=== PATIENT | female | born 1960 | race Caucasian/White ===

== ENCOUNTER 2017-04-11 11:11 | Inpatient (IN) | payer MEDICARE, MEDICAID ==
[~2017-04-11] VITALS: Ht 160 cm; Wt 145.4 kg
[~2017-04-11 11:11] MED LIST: ALBUTEROL S2.5 MG/.5 IN; CIPROFLOXACN500 MG PO; HYDROCHLOROT25 MG PO; K-TABS10 MEQ PO; LASIX20 MG PO; LORTAB 7.57.5 MG PO; MECLIZINE25 MG PO; METFORMIN500 MG PO; METHOCARBAM500 MG PO; NO; PREMARIN1.25 MG PO; PROVENTIL HFA IN; PROVENTIL HFA INH; PROZAC20 M1 PO; VENTOLIN HFA IN; WELLBUTRIN SR150 MG PO
[2017-04-11 12:51] LABS: HEMATOCRIT 45.2 % (37.0-47.0); IMMATURE GRANULOCYTES 0.5 % (0.0-1.0); MEAN CELL VOLUME 89.3 fL CALC (80.0-100.0); MEAN CORPUSCULAR HGB 27.7 pG CALC (26.0-32.0); NEUT# 7.07 thou/uL (2.00-7.15); RED BLOOD COUNT 5.06 mill/uL (4.20-5.60); RED CELL DISTRI WIDTH 14.1 % (11.5-15.5)
[2017-04-11 13:03] LABS: ALBUMIN 4.1 g/dL (3.2-5.0); ALKALINE PHOSPHATASE 115 u/l (38-126); ANION GAP 16 (6-22 (CALC)); BILIRUBIN, TOTAL 0.5 mg/dL (0.0-1.4); BUN 14 mg/dL (7-17); BUN/CREATININE RATIO 25 (12-20 (CALC)); CALCIUM 8.9 mg/dL (8.4-10.2); CARBON DIOXIDE 35 mmol/l (22-30); CHLORIDE 96 mmol/l (95-108); CREATININE 0.6 mg/dL (0.5-1.0); GFR > 60 ML/MIN (>=60 (CALC)); GFR FOR AFR.AMER. > 60 ML/MIN (>=60 (CALC)); GLUCOSE 133 mg/dL (65-105); POTASSIUM 4.2 mmol/l (3.5-5.1); SGOT/AST 30 u/l (14-36); SGPT/ALT 46 u/l (9-52); SODIUM 143 mmol/l (137-146); TOTAL PROTEIN 7.2 g/dL (6.3-8.2)
[2017-04-11 13:15] LABS: MYOGLOBIN 29 ng/mL (0 - 62)
[2017-04-11 13:39] LABS: URINE BILIRUBIN - DIPSTICK NEGATIVE (NEGATIVE); URINE BLOOD DIPSTICK NEGATIVE (NEGATIVE); URINE CLARITY CLEAR; URINE COLOR YELLOW; URINE GLUCOSE - DIPSTICK NEGATIVE (NEGATIVE); URINE KETONE NEGATIVE (NEGATIVE); URINE LEUK ESTERASE NEGATIVE (NEGATIVE); URINE NITRITE - DIPSTICK NEGATIVE (Negative); URINE PH 6.5 (4.5-8.0); URINE PROTEIN - DIPSTICK NEGATIVE (NEG-TRACE); URINE SPECIFIC GRAVITY 1.015; URINE UROBILINOGEN - DIPSTICK 0.2 E.U./dL (0.2)
[2017-04-11 15:00] VITALS: BP 152/66
[2017-04-11 19:55] VITALS: BP 152/81
[2017-04-12] VITALS (8 sets, daily range): BP systolic 128–156; BP diastolic 67–78
[2017-04-12 05:45] LABS: HEMATOCRIT 47.3 % (37.0-47.0); HEMOGLOBIN 14.6 g/dl (12.0-16.0); IMMATURE GRANULOCYTES 1.4 % (0.0-1.0); MEAN CELL VOLUME 89.6 fL CALC (80.0-100.0); MEAN CORPUSCULAR HGB 27.7 pG CALC (26.0-32.0); MEAN CORPUSCULAR HGB CONC 30.9 g/L CALC (32.0-36.0); NEUT# 8.44 thou/uL (2.00-7.15); RED BLOOD COUNT 5.28 mill/uL (4.20-5.60); RED CELL DISTRI WIDTH 13.6 % (11.5-15.5)
[2017-04-12 06:01] LABS: ANION GAP 17 (6-22 (CALC)); BUN 14 mg/dL (7-17); BUN/CREATININE RATIO 25 (12-20 (CALC)); CALCIUM 9.5 mg/dL (8.4-10.2); CALCULATED LDLCHOLESTEROL 86 mg/dL (62-129 (CALC)); CARBON DIOXIDE 37 mmol/l (22-30); CHLORIDE 94 mmol/l (95-108); CHOLESTEROL HDL RATIO 3.1 (<4.4 (CALC)); CREATININE 0.6 mg/dL (0.5-1.0); GFR > 60 ML/MIN (>=60 (CALC)); GFR FOR AFR.AMER. > 60 ML/MIN (>=60 (CALC)); GLUCOSE 164 mg/dL (65-105); HDL CHOLESTEROL 52 mg/dL (>=40); POTASSIUM 4.9 mmol/l (3.5-5.1); SODIUM 143 mmol/l (137-146); TOTAL CHOLESTEROL 158 mg/dl (0-199); TOTAL TRIGLYCERIDES 99 mg/dl (30-149); VLDL CHOLESTROL 20 mg/dl (2-49 (CALC))
[2017-04-13 03:40] VITALS: BP 154/71
[2017-04-13 04:56] LABS: HEMATOCRIT 47.3 % (37.0-47.0); HEMOGLOBIN 14.4 g/dl (12.0-16.0); IMMATURE GRANULOCYTES 0.5 % (0.0-1.0); MEAN CELL VOLUME 89.6 fL CALC (80.0-100.0); MEAN CORPUSCULAR HGB 27.3 pG CALC (26.0-32.0); MEAN CORPUSCULAR HGB CONC 30.4 g/L CALC (32.0-36.0); NEUT# 10.18 thou/uL (2.00-7.15); RED BLOOD COUNT 5.28 mill/uL (4.20-5.60); RED CELL DISTRI WIDTH 13.5 % (11.5-15.5)
[2017-04-13 05:20] LABS: BUN 22 mg/dL (7-17); BUN/CREATININE RATIO 36 (12-20 (CALC)); CHLORIDE 91 mmol/l (95-108); CREATININE 0.6 mg/dL (0.5-1.0); GFR > 60 ML/MIN (>=60 (CALC)); GFR FOR AFR.AMER. > 60 ML/MIN (>=60 (CALC)); GLUCOSE 151 mg/dL (65-105); SODIUM 140 mmol/l (137-146)
[2017-04-13 05:27] LABS: ANION GAP 13 (6-22 (CALC))
[2017-04-13 05:30] LABS: CARBON DIOXIDE 41 mmol/l (22-30)
[2017-04-13 07:20] VITALS: BP 137/77
[2017-04-13 11:09] VITALS: BP 144/75
[2017-04-13 14:55] VITALS: BP 148/81
[2017-04-13 19:45] VITALS: BP 148/73
[2017-04-14 00:20] VITALS: BP 126/60
[2017-04-14 04:12] VITALS: BP 151/50
[2017-04-14 08:00] VITALS: BP 132/58
[2017-04-14 11:15] VITALS: BP 154/82
[2017-04-14] MEDS ORDERED: LEVAQUIN750 MG PO (14:02)
[2017-04-14] MEDS ORDERED: IPRATROPIU0.5 MG/3 M NEB (14:02)
[2017-04-14] MEDS ORDERED: PREDNISONE10 MG PO (14:02)
[2017-04-14] MEDS ORDERED: LASIX20 MG PO (14:02)
[2017-04-14] MEDS ORDERED: NEBULIZER COMPRESSOR (14:02)
== END 2017-04-14 14:49 | disposition home or self-care (01) | DRG 189 ==
LOC: ENPENDDIS → ED 11:11 → ED-I 12:43 → ED 14:23 → MS2 14:24
PROVIDERS: Emergency Medicine; ADMIT Internal Medicine; ATTEND Internal Medicine
DX: J96.01 Acute respiratory failure with hypoxia (principal); J44.0 Chronic obstructive pulmonary disease with (acute) lower respiratory infection; J44.1 Chronic obstructive pulmonary disease with (acute) exacerbation; Z68.43 Body mass index [BMI] 50.0-59.9, adult; J96.02 Acute respiratory failure with hypercapnia; J20.9 Acute bronchitis, unspecified; E11.9 Type 2 diabetes mellitus without complications; G47.33 Obstructive sleep apnea (adult) (pediatric); R60.0 Localized edema; F17.210 Nicotine dependence, cigarettes, uncomplicated; E66.01 Morbid (severe) obesity due to excess calories; Z79.84 Long term (current) use of oral hypoglycemic drugs
CPT/HCPCS: J1650

== ENCOUNTER 2017-06-03 10:52 | Emergency (ER) | payer MEDICARE, MEDICAID ==
[~2017-06-03] VITALS: Ht 160 cm; Wt 136.0 kg
[~2017-06-03 10:52] MED LIST changes: +IPRATROPIU0.5 MG/3 M NEB; +LEVAQUIN750 MG PO; +NEBULIZER COMPRESSOR; +PREDNISONE10 MG PO
[2017-06-03] MEDS ORDERED: SPIRIVA IN (11:11)
[2017-06-03] MEDS ORDERED: BREO ELLIPTA 101 INH (11:12)
[2017-06-03] MEDS ORDERED: EFFEXOR XR75 MG PO (11:13)
[2017-06-03 11:55] LABS: HEMATOCRIT 40.6 % (37.0-47.0); HEMOGLOBIN 12.5 g/dl (12.0-16.0); IMMATURE GRANULOCYTES 0.5 % (0.0-1.0); MEAN CELL VOLUME 87.9 fL CALC (80.0-100.0); MEAN CORPUSCULAR HGB 27.1 pG CALC (26.0-32.0); MEAN CORPUSCULAR HGB CONC 30.8 g/L CALC (32.0-36.0); NEUT# 8.09 thou/uL (2.00-7.15); RED BLOOD COUNT 4.62 mill/uL (4.20-5.60); RED CELL DISTRI WIDTH 14.6 % (11.5-15.5)
[2017-06-03 13:00] LABS: ALBUMIN 3.7 g/dL (3.2-5.0); ALKALINE PHOSPHATASE 113 u/l (38-126); ANION GAP 12 (6-22 (CALC)); BILIRUBIN, TOTAL 0.4 mg/dL (0.0-1.4); BUN 15 mg/dL (7-17); BUN/CREATININE RATIO 28 (12-20 (CALC)); CALCIUM 8.6 mg/dL (8.4-10.2); CARBON DIOXIDE 35 mmol/l (22-30); CHLORIDE 97 mmol/l (95-108); CREATININE 0.5 mg/dL (0.5-1.0); GFR > 60 ML/MIN (>=60 (CALC)); GFR FOR AFR.AMER. > 60 ML/MIN (>=60 (CALC)); GLUCOSE 145 mg/dL (65-105); POTASSIUM 4.5 mmol/l (3.5-5.1); SGOT/AST 23 u/l (14-36); SGPT/ALT 48 u/l (9-52); SODIUM 140 mmol/l (137-146); TOTAL PROTEIN 6.6 g/dL (6.3-8.2)
[2017-06-03] MEDS ORDERED: CEPHALEXIN500 MG PO (13:20)
[2017-06-03] MEDS ORDERED: IPRATROPIU0.5 MG/3 M IN (13:20)
[2017-06-03] MEDS ORDERED: MEDDOSEPAK PO (13:20)
[2017-06-03 13:26] VITALS: BP 168/70
== END 2017-06-03 13:44 | disposition home or self-care (01) ==
LOC: ED 10:52
PROVIDERS: Emergency Medicine
DX: J44.1 Chronic obstructive pulmonary disease with (acute) exacerbation (principal); F17.210 Nicotine dependence, cigarettes, uncomplicated; R06.02 Shortness of breath; R22.43 Localized swelling, mass and lump, lower limb, bilateral; R50.9 Fever, unspecified; R00.0 Tachycardia, unspecified

== ENCOUNTER 2017-07-03 12:28 | Inpatient (IN) | payer MEDICARE, MEDICAID ==
[~2017-07-03] VITALS: Ht 160 cm; Wt 145.0 kg
[~2017-07-03 12:28] MED LIST changes: +BREO ELLIPTA 101 INH IN; +CEPHALEXIN500 MG PO; +EFFEXOR XR75 MG PO; +IPRATROPIU0.5 MG/3 M IN; +MEDDOSEPAK PO; +SPIRIVA IN
--- NOTE | 2017-07-03 13:08 | NUR ---
PATIENT TO ROOM VIA WHEELCHAIR AND PHYSICIAN NOTIFIED OF PATIENT STATUS
[2017-07-03 14:06] LABS: URINE BILIRUBIN - DIPSTICK NEGATIVE (NEGATIVE); URINE BLOOD DIPSTICK NEGATIVE (NEGATIVE); URINE CLARITY CLEAR; URINE COLOR YELLOW; URINE GLUCOSE - DIPSTICK NEGATIVE (NEGATIVE); URINE KETONE NEGATIVE (NEGATIVE); URINE LEUK ESTERASE NEGATIVE (NEGATIVE); URINE NITRITE - DIPSTICK NEGATIVE (Negative); URINE PROTEIN - DIPSTICK NEGATIVE (NEG-TRACE)
--- NOTE | 2017-07-03 14:39 | NUR ---
PT PROVIDES URINE SPECIMEN, IV ESTABLISHED WITHOUT BLOOD COLLECTION. LAB AWARE AND WILL DRAW. PT SEEN MID 90s O-2 SATS WITH 2 LPM NC.
[2017-07-03 15:20] LABS: HEMATOCRIT 39.7 % (37.0-47.0); HEMOGLOBIN 12.2 g/dl (12.0-16.0); IMMATURE GRANULOCYTES 0.5 % (0.0-1.0); MEAN CELL VOLUME 86.3 fL CALC (80.0-100.0); MEAN CORPUSCULAR HGB 26.5 pG CALC (26.0-32.0); MEAN CORPUSCULAR HGB CONC 30.7 g/L CALC (32.0-36.0); NEUT# 7.6 thou/uL (2.00-7.15); RED BLOOD COUNT 4.6 mill/uL (4.20-5.60)
[2017-07-03 15:36] LABS: ALBUMIN 3.9 g/dL (3.2-5.0); ALKALINE PHOSPHATASE 105 u/l (38-126); ANION GAP 12 (6-22 (CALC)); BILIRUBIN, TOTAL 0.6 mg/dL (0.0-1.4); BUN 12 mg/dL (7-17); BUN/CREATININE RATIO 21 (12-20 (CALC)); CALCIUM 8.9 mg/dL (8.4-10.2); CARBON DIOXIDE 36 mmol/l (22-30); CHLORIDE 96 mmol/l (95-108); CREATININE 0.6 mg/dL (0.5-1.0); GFR > 60 ML/MIN (>=60 (CALC)); GFR FOR AFR.AMER. > 60 ML/MIN (>=60 (CALC)); GLUCOSE 92 mg/dL (65-105); POTASSIUM 4.5 mmol/l (3.5-5.1); SGOT/AST 29 u/l (14-36); SGPT/ALT 50 u/l (9-52); SODIUM 139 mmol/l (137-146); TOTAL PROTEIN 7.3 g/dL (6.3-8.2)
[2017-07-03 15:48] LABS: MYOGLOBIN 28 ng/mL (0 - 62)
[2017-07-03] MEDS ORDERED: SINGULAIR10 MG PO (16:15)
[2017-07-03] MEDS ORDERED: XALATAN 0.005%2.5 ML OU (16:18)
[2017-07-03] MEDS ORDERED: TOPIRAMATE100 MG PO (16:19)
--- NOTE | 2017-07-03 16:30 | NUR ---
PT AWARE OF PENDING ADMISSION, RESTS IN THE STRETCHER IN NO ACUTE DISTRESS.
--- NOTE | 2017-07-03 16:30 | NUR ---
SBAR PRINTED TO FLOOR
--- NOTE | 2017-07-03 17:55 | NUR ---
PT TO ROOM VIA WC ACCOMPANIED BY STAFF; PT A/O X3; AMBULATORY TO BED WITH STAND BY ASSIST; PT ORIENTED TO ROOM AND CALL SYSTEM; DENIES PAIN; O2 2L VIA NC; CALL [place] WITHIN REACH; WILL CONTINUE TO MONITOR.
--- NOTE | 2017-07-03 17:59 | NUR ---
PT TAKEN TO ROOM 283 WITHOUT INCIDENT, REPORT WAS TO FELIPE YOUNG.
[2017-07-03 18:00] VITALS: BP 156/80
[2017-07-03 18:29] LABS: BARBITURATES NEGATIVE (NEGATIVE); COCAINE NEGATIVE (NEGATIVE); METHADONE NEGATIVE (NEGATIVE); OXCYCODONE NEGATIVE (NEGATIVE); TETRAHYDROCANNABIONOL NEGATIVE (NEGATIVE); TRICYLIC ANTIDEPRESSANTS NEGATIVE (NEGATIVE)
--- NOTE | 2017-07-03 21:00 | NUR ---
PT A/O X3, OOB TO BATHROOM VOIDING CLEAR YELLOW URINE, BECOMES SOB WITH ACTIVITY, O2 @2L VIA NC IN PLACE. DENIES PAIN OR DISCOMFORT. ORIENTED TO BED CONTROLS AND CALL LIGHT FOR ASSISTANCE.
[2017-07-04] VITALS: BP 148/72
--- NOTE | 2017-07-04 01:00 | NUR ---
RESTING ON RIGHT SIDE WITH EYES CLOSED, RESPIRATIONS EVEN AND UNLABORED.
[2017-07-04 04:39] VITALS: BP 132/64
--- NOTE | 2017-07-04 06:00 | NUR ---
SOLUMEDROL GIVEN IV PER DR'S ORDERS, TOLERATED WELL. RESPIRATIONS EVEN AND UNLABORED. OFFERS NO CONCERNS.
[2017-07-04 08:08] VITALS: BP 185/72
--- NOTE | 2017-07-04 08:08 | NUR ---
ASSESMENT IS COMPLETED NO DISTRESS NOTED. IV SITE IS FREE FROM REDNESS OR EDEMA. CONTINUE TO OSBERVE AND MONITOR,.
--- NOTE | 2017-07-04 12:15 | NUR ---
PT HAS BEEN RESTING IN BED WITH NO DISTRESS NOTED. IV SITE IS FREE FROM REDNESS OR EDMEA. CONTINUE TO OBSERVE AND MONITOR.
[2017-07-04 15:01] VITALS: BP 139/73
--- NOTE | 2017-07-04 16:20 | NUR ---
PT CONTINUES TO REST WITH NO DISTRESS NOTED. IV SITE IS FREE FROM REDNESS OR EDEMA.
--- NOTE | 2017-07-04 19:00 | NUR ---
RECEIVED SHIFT REPORT FROM SOFIA MELVIN. PATIENT SITTING UP IN BED WITH FAMILY AT BEDSIDE. NO APPARENT ACUTE DISTRESS OR DISCOMFORT NOTED. NO VOICED COMPLAINTS AT THIS TIME. WILL CONTINUE TO MONITOR.
[2017-07-04 19:12] VITALS: BP 141/83
--- NOTE | 2017-07-05 | NUR ---
PATIENT LAYING IN BED WITH EYES CLOSED AND APPEARS TO BE ASLEEP. RESPIRATION EVEN AND UNLABORED. NO APPARENT ACUTE DISTRESS NOTED. WILL CONTINUE TO MONITOR.
--- NOTE | 2017-07-05 04:00 | NUR ---
NO APPARENT ACUTE CHANGES NOTED IN PATIENT'S CONDITION.
[2017-07-05 04:10] VITALS: BP 159/67
[2017-07-05 06:02] LABS: HEMATOCRIT 41.3 % (37.0-47.0); HEMOGLOBIN 12.4 g/dl (12.0-16.0); IMMATURE GRANULOCYTES 0.8 % (0.0-1.0); MEAN CELL VOLUME 88.2 fL CALC (80.0-100.0); MEAN CORPUSCULAR HGB 26.5 pG CALC (26.0-32.0); NEUT# 10.2 thou/uL (2.00-7.15); RED BLOOD COUNT 4.68 mill/uL (4.20-5.60); RED CELL DISTRI WIDTH 14.3 % (11.5-15.5)
[2017-07-05 06:22] LABS: BUN 18 mg/dL (7-17); BUN/CREATININE RATIO 30 (12-20 (CALC)); CALCIUM 9.1 mg/dL (8.4-10.2); CALCULATED LDLCHOLESTEROL 99 mg/dL (62-129 (CALC)); CHLORIDE 91 mmol/l (95-108); CHOLESTEROL HDL RATIO 3.7 (<4.4 (CALC)); CREATININE 0.6 mg/dL (0.5-1.0); GFR > 60 ML/MIN (>=60 (CALC)); GFR FOR AFR.AMER. > 60 ML/MIN (>=60 (CALC)); GLUCOSE 139 mg/dL (65-105); HDL CHOLESTEROL 44 mg/dL (>=40); MAGNESIUM 2.1 mg/dL (1.6-2.3); SODIUM 140 mmol/l (137-146); TOTAL CHOLESTEROL 163 mg/dl (0-199); TOTAL TRIGLYCERIDES 95 mg/dl (30-149); VLDL CHOLESTROL 19 mg/dl (2-49 (CALC))
[2017-07-05 06:23] LABS: POTASSIUM 5.2 mmol/l (3.5-5.1)
--- NOTE | 2017-07-05 07:00 | NUR ---
SHIFT CHANGE REPORT FROM COLEEN, PT SLEEPING IN HIGH FOWLERS POSITION, SNORING, DID NOT AWAKEN TO LIGHT VERBAL STIMULATION BUT SHOWED NO VISIBLE SIGH DISTRESS, CALL [place] IN REACH AND BED LOCKED IN LOWEST POSITION.
[2017-07-05 07:01] LABS: ANION GAP 13 (6-22 (CALC)); CARBON DIOXIDE 41 mmol/l (22-30)
--- NOTE | 2017-07-05 09:00 | NUR ---
AWAKE AND ALERT, C/O DISCOMFORT AT IV SITE, INFUSION STOPPED AND CATHETER REMOVED, NO REDNESS/SWELLING OBSERVED, NEW SITE PLACED.
[2017-07-05 09:37] VITALS: BP 120/69
--- NOTE | 2017-07-05 12:00 | NUR ---
SITTING UP AT SIDE OF BED, ATE MEAL, C/O FEELING VERY SLEEPY AND INQUIRED WHETHER OR NOT HER MEDS COULD BE THE CAUSE, INFORMATION GIVEN ON SIDE EFFECTS OF MEDS. ALL NEEDS ADDRESSED, CALL [place] IN REACH.
[2017-07-05 15:37] VITALS: BP 134/71
--- NOTE | 2017-07-05 16:13 | NUR ---
RELAXING IN BED AT THIS IMTE WATCHING TV, ALL NEEDS ADDRESSED, CALL [place] IN REACH.
--- NOTE | 2017-07-05 19:00 | NUR ---
RECEIVED SHIFT REPORT FROM PATRICK. HANNAH. PATIENT LAYING IN BED AND APPEARS NOT TO BE IN ANY APPARENT ACUTE DESTRESS. DENIES PAIN. WILL CONTINUE TO MONITOR.
[2017-07-05 19:28] VITALS: BP 139/67
--- NOTE | 2017-07-05 23:00 | NUR ---
PATIENT RESTING QUIETLY AT THIS TIME. NO APPARENT ACUTE DISTRESS NOTED.
--- NOTE | 2017-07-06 04:00 | NUR ---
NO APPARENT ACUTE CHANGES NOTED IN PATIENT'S CONDITION.
[2017-07-06 05:51] VITALS: BP 139/76
[2017-07-06 06:21] LABS: HEMOGLOBIN 12.8 g/dl (12.0-16.0); IMMATURE GRANULOCYTES 0.5 % (0.0-1.0); MEAN CELL VOLUME 87.5 fL CALC (80.0-100.0); MEAN CORPUSCULAR HGB 26.7 pG CALC (26.0-32.0); MEAN CORPUSCULAR HGB CONC 30.5 g/L CALC (32.0-36.0); NEUT# 8.94 thou/uL (2.00-7.15); RED BLOOD COUNT 4.8 mill/uL (4.20-5.60); RED CELL DISTRI WIDTH 14.3 % (11.5-15.5)
[2017-07-06 06:39] LABS: BUN 22 mg/dL (7-17); BUN/CREATININE RATIO 35 (12-20 (CALC)); CALCIUM 9.2 mg/dL (8.4-10.2); CHLORIDE 90 mmol/l (95-108); CREATININE 0.6 mg/dL (0.5-1.0); GFR > 60 ML/MIN (>=60 (CALC)); GFR FOR AFR.AMER. > 60 ML/MIN (>=60 (CALC)); GLUCOSE 122 mg/dL (65-105); POTASSIUM 4.8 mmol/l (3.5-5.1); SODIUM 139 mmol/l (137-146)
[2017-07-06 06:46] LABS: ANION GAP 12 (6-22 (CALC))
[2017-07-06 06:49] LABS: CARBON DIOXIDE 42 mmol/l (22-30)
--- NOTE | 2017-07-06 07:00 | NUR ---
SHIFT CHANGE REPORT FROM CAMILLE, JEB AWAKE AND ALERT SITTING UP IN BED, O2 @ 2L VIA NC INPLACE, BREATHING SHALLOW BUT EVEN AND NON-LABORED, ALL NEEDS MET, CALL [place] IN REACH.
[2017-07-06 08:09] VITALS: BP 103/56
[2017-07-06] MEDS ORDERED: PREDNISONE10 MG PO (12:27)
[2017-07-06] MEDS ORDERED: DOXYCYC MONO100 M1 PO (12:27)
[2017-07-06] MEDS ORDERED: PHENTERMINE37.5 M1 PO (12:29)
--- NOTE | 2017-07-06 14:50 | NUR ---
Discharge instructions given. Patient verbalizes understanding of same. Discharged in stable condition via Wheelchair to Home with family. All belongings sent with pt.
== END 2017-07-06 15:08 | disposition home or self-care (01) | DRG 189 ==
LOC: ED 12:28 → ED-I 15:56 → ED 16:24 → MS2 16:25
PROVIDERS: Emergency Medicine; Nurse Practitioner Family; ADMIT Internal Medicine; ATTEND Internal Medicine
PROC: 3E0234Z Introduction of Serum, Toxoid and Vaccine into Muscle, Percutaneous Approach (ICD-10-PCS; principal; 2017-07-04)
DX: J96.22 Acute and chronic respiratory failure with hypercapnia (principal); J44.1 Chronic obstructive pulmonary disease with (acute) exacerbation; Z99.81 Dependence on supplemental oxygen; Z68.43 Body mass index [BMI] 50.0-59.9, adult; J96.21 Acute and chronic respiratory failure with hypoxia; E11.9 Type 2 diabetes mellitus without complications; E66.01 Morbid (severe) obesity due to excess calories; H40.9 Unspecified glaucoma; R60.0 Localized edema; Z87.891 Personal history of nicotine dependence; Z23 Encounter for immunization; Z79.84 Long term (current) use of oral hypoglycemic drugs
CPT/HCPCS: G0378

== ENCOUNTER 2018-01-17 12:59 | Inpatient (IN) | payer MEDICARE, MEDICAID ==
[~2018-01-17] VITALS: Ht 160 cm; Wt 139.0 kg
[~2018-01-17 12:59] MED LIST changes: +DOXYCYC MONO100 M1 PO; +PHENTERMINE37.5 M1 PO; +SINGULAIR10 MG PO; +TOPIRAMATE100 MG PO; +XALATAN 0.005%2.5 ML OU
--- NOTE | 2018-01-17 13:10 | NUR ---
WHEELCHAIR TO ER ROOM 14, TO BED
[2018-01-17 13:56] LABS: HEMATOCRIT 40.2 % (37.0-47.0); HEMOGLOBIN 12.5 g/dl (12.0-16.0); IMMATURE GRANULOCYTES 0.8 % (0.0-1.0); MEAN CELL VOLUME 89.3 fL CALC (80.0-100.0); MEAN CORPUSCULAR HGB 27.8 pG CALC (26.0-32.0); MEAN CORPUSCULAR HGB CONC 31.1 g/L CALC (32.0-36.0); NEUT# 12.22 thou/uL (2.00-7.15); RED BLOOD COUNT 4.5 mill/uL (4.20-5.60); RED CELL DISTRI WIDTH 13.6 % (11.5-15.5)
--- NOTE | 2018-01-17 14:05 | NUR ---
PT REPORTS 11 LB WEIGHT GAIN IN 1 WEEK.
[2018-01-17 14:47] LABS: URINE BILIRUBIN - DIPSTICK NEGATIVE (NEGATIVE); URINE BLOOD DIPSTICK NEGATIVE (NEGATIVE); URINE COLOR YELLOW; URINE GLUCOSE - DIPSTICK NEGATIVE (NEGATIVE); URINE KETONE NEGATIVE (NEGATIVE); URINE LEUK ESTERASE NEGATIVE (NEGATIVE); URINE NITRITE - DIPSTICK NEGATIVE (Negative); URINE PH 5.5 (4.5-8.0); URINE PROTEIN - DIPSTICK NEGATIVE (NEG-TRACE); URINE UROBILINOGEN - DIPSTICK 0.2 E.U./dL (0.2)
[2018-01-17 14:59] LABS: ANION GAP 17 (6-22 (CALC)); BUN 16 mg/dL (7-17); BUN/CREATININE RATIO 25 (12-20 (CALC)); CARBON DIOXIDE 39 mmol/l (22-30); CHLORIDE 90 mmol/l (95-108); CREATININE 0.7 mg/dL (0.5-1.0); GFR > 60 ML/MIN (>=60 (CALC)); GFR FOR AFR.AMER. > 60 ML/MIN (>=60 (CALC)); POTASSIUM 4.1 mmol/l (3.5-5.1); SODIUM 142 mmol/l (137-146)
[2018-01-17 15:03] LABS: INTERNATIONAL NORMALIZED RATIO 0.9 RATIO (0.7-1.3); PROTHROMBIN TIME 10.1 SECONDS (9.0-12.5)
[2018-01-17 15:36] LABS: URINE CLARITY CLEAR
--- NOTE | 2018-01-17 15:37 | NUR ---
PT UPDATED ON FINDINGS, HAS REMAINED ON THE BSC PER LASIX EFFECT.
[2018-01-17] MEDS ORDERED: BUMETANIDE1 MG PO (16:37)
[2018-01-17] MEDS ORDERED: VICTOZA18 MG/3 ML SC (16:40)
[2018-01-17] MEDS ORDERED: PROVENTIL HFA IN (16:44)
[2018-01-17] MEDS ORDERED: PREDNISONE10 MG PO (16:45)
--- NOTE | 2018-01-17 17:00 | NUR ---
PT TAKEN T O ROOM 269, REPORT WAS TO MELIDA.
--- NOTE | 2018-01-17 17:20 | NUR ---
PT CAME VIA STRETCHER BY HANNAH MAHAJAN. STAND BY ASSIST TO SCALE AND THEN BY PT BED. ORIENTED TO CALL LIGHT AND SAFETY PRECAUTIONS REINFORCED. CALL LIGHT IN REACH.
[2018-01-17 17:38] VITALS: BP 180/83
--- NOTE | 2018-01-17 17:44 | NUR ---
ASSSESSMENT DONE AND TELE IN PLACE. #20 LW THAT APPEARS HEALHTY. O2 AT 2L/MIN VIA NC. PT DENIES PAIN AT THIS TIME. CALL LIGHT IN REACH.
--- NOTE | 2018-01-17 17:45 | NUR ---
BSC EMPTIED OF 2500 ML CLEAR YELLOW URINE.
[2018-01-17 17:50] VITALS: BP 168/80
[2018-01-17 19:00] VITALS: BP 175/79
--- NOTE | 2018-01-17 19:30 | NUR ---
BEDSIDE REPORT RECEIVED FROM HANNAH BEAVERS. PT SITTING UP IN BED WITH VISITOR AT BEDSIDE. DENIES PAIN CURRENTLY. RESPIRATIONS EVEN AND UNLABORED ON ROOM AIR. SHE REQUESTS A FAN AT THIS TIME STATING THAT SHE IS HOT; ROOM NOTED TO BE VERY COOL; FAN PLACED IN ROOM. PLAN OF CARE DISCUSSED. PT ENCOURAGED TO VERBALIZE CONCERNS. STATES UNDERSTANDING. SAFETY MEASURES IN PLACE. CALL LIGHT WITHIN REACH.
--- NOTE | 2018-01-18 | NUR ---
PT ASLEEP AT THIS TIME WITH NO SIGNS OF DISTRESS NOTED. RESPIRATIONS EVEN AND UNLABORED ON OXYGEN. INDEPENDENT IN ROOM TO BATHROOM. USES CALL LIGHT PRN FOR ASSITANCE. IV SITE APPEARS HEALTHY AND FLUSHES. SAFETY MEASURES IN PLACE. CALL LIGHT WITHIN REACH.
[2018-01-18 00:12] VITALS: BP 164/72
--- NOTE | 2018-01-18 04:22 | NUR ---
PT UP AND AMBULATING TO BATHROOM IN ROOM. DENIES PAIN AND SOB WITH OXYGEN IN PLACE. HAS NO REQUESTS OR COMPLAINTS AT THIS TIME. NO ACUTE CHANGES IN CONDITION THROUGHOUT THE NIGHT. LUNGS STILL HAVE EXPIRATORY WHEEZING. SAFETY MEASURES IN PLACE. CALL LIGHT WITHIN REACH.
[2018-01-18 04:26] VITALS: BP 151/52
[2018-01-18 06:40] LABS: HEMATOCRIT 39.6 % (37.0-47.0); HEMOGLOBIN 12.3 g/dl (12.0-16.0); MEAN CELL VOLUME 89.6 fL CALC (80.0-100.0); MEAN CORPUSCULAR HGB 27.8 pG CALC (26.0-32.0); MEAN CORPUSCULAR HGB CONC 31.1 g/L CALC (32.0-36.0); RED BLOOD COUNT 4.42 mill/uL (4.20-5.60); RED CELL DISTRI WIDTH 13.4 % (11.5-15.5)
[2018-01-18 06:53] LABS: BUN 18 mg/dL (7-17); BUN/CREATININE RATIO 30 (12-20 (CALC)); CALCULATED LDLCHOLESTEROL 85 mg/dL (62-129 (CALC)); CHLORIDE 89 mmol/l (95-108); CHOLESTEROL HDL RATIO 2.7 (<4.4 (CALC)); CREATININE 0.6 mg/dL (0.5-1.0); GFR > 60 ML/MIN (>=60 (CALC)); GFR FOR AFR.AMER. > 60 ML/MIN (>=60 (CALC)); HDL CHOLESTEROL 56 mg/dL (>=40); MAGNESIUM 2.1 mg/dL (1.6-2.3); SODIUM 141 mmol/l (137-146); TOTAL CHOLESTEROL 155 mg/dl (0-199); TOTAL TRIGLYCERIDES 68 mg/dl (30-149); VLDL CHOLESTROL 14 mg/dl (2-49 (CALC))
[2018-01-18 06:59] LABS: ANION GAP 16 (6-22 (CALC)); POTASSIUM 5.1 mmol/l (3.5-5.1)
[2018-01-18 07:00] LABS: CARBON DIOXIDE 41 mmol/l (22-30)
--- NOTE | 2018-01-18 07:00 | NUR ---
BEDSIDE REPORT RECEIVED BY JULIAN. PT IS RESTING IN BED AND DENIES NEEDS AT THIS TIME. CALL LIGHT IN REACH.
[2018-01-18 08:00] VITALS: BP 144/69
--- NOTE | 2018-01-18 08:30 | NUR ---
PT IS SITTING IN THE SIDE OF THE BED. ASSESSMENT DONE AND TELE IN PLACE. LUNG SOUND CLEAR/EXPIRATORY WHEEZES. # 20 RW THAT APPEARS HEALTHY. PT DENIES PAIN AT THIS TIME. ORIENTED TO CALL LIGHT AND SAFETY PRECAUTIONS REINFORCED.
[2018-01-18 11:00] VITALS: BP 136/87
--- NOTE | 2018-01-18 12:00 | NUR ---
PT IS EATING HER LUNCH WITH NO S/S OF DISTRESS NOTED. PT DENIES NEEDS AT THIS TIME. CALL LIGHT IN REACH.
[2018-01-18 13:04] LABS: INFLUENZA A NONE DETECTED (NONE DETECT); INFLUENZA B NONE DETECTED (NONE DETECT)
[2018-01-18 15:48] VITALS: BP 149/62
--- NOTE | 2018-01-18 16:00 | NUR ---
PT IS SITTING IN THE SIDE OF THE BED WITH NO S/S OF DISTRESS NOTED. PT DENIES NEEDS AT THIS TIME. CALL LIGHT IN REACH.
[2018-01-18 19:08] VITALS: BP 132/73
--- NOTE | 2018-01-18 19:20 | NUR ---
REPORT RECIEVED; PT SITTING HIGH- FOWLERS IN BED. FAMILY AT BEDSIDE. RESP EVEN AND UNLABORED WITH [address]. PT DENIES PAIN OR DISCOMFORT. SAFETY PRECAUTIONS REINFORCED. FREQUENT ROUNDS MADE. CALL LIGHT WITHIN REACH.
--- NOTE | 2018-01-18 19:42 | NUR ---
PT RESTING IN BED WITH FAMILY AT BEDSIDE. RESP EVEN AND UNLABORED; NO DISTRESS NOTED. LUNGS; CLEAR/DIMINISHED BILAT. TELE IN PLACE. ABD DISTENDED;SOFT. ACTIVE BOWEL SOUNDS NOTED. TRACE EDEMA LEGS NOTED BILAT; PT ENCOURAGED TO ELEVATE. IV LH PATENT; FLUSHED WITHOUT DIFFICULTY. SAFETY PRECAUTIONS REINFORCE. CALL LIGHT WITHIN REACH.
[2018-01-19] VITALS (7 sets, daily range): BP systolic 131–157; BP diastolic 54–80
--- NOTE | 2018-01-19 00:15 | NUR ---
FAMILY IN ROOM WITH PT. PT DENIES ANY PAIN OR DISCOMFORT. RESP EVEN AND UNLABORED WITH O2 IN PLACE. TELE IN PLACE. CALL LIGHT WITHIN REACH.
--- NOTE | 2018-01-19 04:01 | NUR ---
RESP EVEN AND UNLABORED WITH O2 IN PLACE; ASSESSMENT UNCHANGED. TELE IN PLACE. CALL LIGHT WITHIN REACH.
--- NOTE | 2018-01-19 08:32 | NUR ---
PT SITTING UP ON SIDE OF BED. ASSESSMENT COMPLETED. VSS. TELE MONITOR IN PLACE. PT VOICES NO C/O AT THIS TIME. WILL CONTINUE TO MONITOR. CALL LIGHT IN REACH.
--- NOTE | 2018-01-19 11:42 | NUR ---
PT SITTING UP IN BED. NO C/O AT THIS TIME. COVERED WITH 2 UNITS OF NOVOLOG FOR SUGAR OF 245. WILL CONTINUE TO MONITOR. CALL LIGHT IN REACH.
--- NOTE | 2018-01-19 16:00 | NUR ---
RESTING IN HIGH FOWLERS, VISITOR AT BEDSIDE. RESPS EVEN AND UNLABORED ON ROOM AIR, TELE MONITOR IN PLACE. ABLE TO SPEAK IN COMPLETE SENTENCES. VOICES NO NEEDS AT THIS TIME. CALL LIGHT WITHIN REACH. WILL CONTINUE TO MONITOR.
--- NOTE | 2018-01-19 19:30 | NUR ---
BEDSIDE REPORT RECEIVED FROM HANNAH FLORES. PT SITTING UP AT BEDSIDE EATING; FAMILY AT BEDSIDE. DENIES PAIN CURRENTLY. RESPIRATIONS EVEN AND UNLABORED ON OXYGEN. PLAN OF CARE REVIEWED. PT ENCOURAGED TO VERBALIZE CONCERNS. STATES UNDERSTANDING. SAFETY MEASURES IN PLACE. CALL LIGHT WITHIN REACH.
--- NOTE | 2018-01-20 00:07 | NUR ---
PT UP TO BATHROOM AT THIS TIME; AMBULATES INDEPENDENTLY. DENIES PAIN CURRENTLY. SHE DOES HAVE SOME EXERTIONAL SOB; OXYGEN SATURATION 91% ON 2L OF O2 VIA NC. VS STABLE. VOIDING LARGE AMOUNTS OF CLEAR YELLOW URINE. IV SITE APPEARS HEALTHY AND FLUSHES. PT HAS NO REQUESTS OR COMPLAINTS. SAFETY MEASURES IN PLACE. CALL LIGHT WITHIN REACH.
[2018-01-20 04:00] VITALS: BP 147/73
--- NOTE | 2018-01-20 04:30 | NUR ---
RT AT BEDSIDE GIVING BREATHING TREATMENT. PT C/O HEADACHE AT THIS TIME; COOL CLOTH APPLIED TO FOREHEAD. NO ACUTE CHANGES IN CONDITION NOTED THROUGHOUT THE NIGHT. SAFETY MEASURES IN PLACE. CALL LIGHT WITHIN REACH.
[2018-01-20 05:59] LABS: BUN 21 mg/dL (7-17); BUN/CREATININE RATIO 31 (12-20 (CALC)); CHLORIDE 91 mmol/l (95-108); CREATININE 0.7 mg/dL (0.5-1.0); GFR > 60 ML/MIN (>=60 (CALC)); GFR FOR AFR.AMER. > 60 ML/MIN (>=60 (CALC)); POTASSIUM 4.4 mmol/l (3.5-5.1); SODIUM 142 mmol/l (137-146)
[2018-01-20 06:05] LABS: ANION GAP 14 (6-22 (CALC))
[2018-01-20 06:11] LABS: CARBON DIOXIDE 41 mmol/l (22-30)
--- NOTE | 2018-01-20 07:15 | NUR ---
REPORT RECEIVED FROM HANNAH MANZANARES;PT APPEARS TO BE SLEEPING IN LEFT SIDE LAYING POSITION;NO S/S OF DISTRESS NOTED;RESPIRATIONS EVEN AND UNLABORED ON RA;BED IN THE LOWEST POSITION WITH CALL LIGHT IN REACH;WILL CONTINUE TO MONITOR
[2018-01-20 08:17] VITALS: BP 139/79
--- NOTE | 2018-01-20 08:20 | NUR ---
PT RESTING IN BED EATING BREAKFAST WITH SPOUSE AT BEDSIDE;VS OBTAINED AND ASSESSMENT COMPLETED;A&O X3;RESPIRATIONS EVEN AND UNLABORED,SHALLOW ON O2 @ 2L VIA NC,CLEAR/DIMINISHED LUNG SOUNDS NOTED;ABDOMEN DISTENDED/SOFT ON PALPATION;#22G TO LEFT FOREARM FLUSHED AND PATENT,SITE APPEARS HEALTHY;TELE MONITOR IN PLACE;PT DENIES ANY PAIN OR DISCOMFORTS;SAFETY PRECAUTIONS REINFORCED WITH BED IN THE LOWEST POSITION;ENCOURAGED TO CALL FOR ASSISTANCE IF NEEDED;CALL LIGHT IN REACH;WILL CONTINUE TO MONITOR
[2018-01-20 10:52] VITALS: BP 140/69
--- NOTE | 2018-01-20 11:30 | NUR ---
PT RESTING IN HIGH FOWLERS POSITION;DENIES PAIN;RESPIRATIONS REMAIN EVEN AND UNLABORED ON O2 @ 2L;TELE MONITOR IN PLACE;PT ENCOURAGED TO CALL FOR ASSISTANCE IF NEEDED;WILL CONTINUE TO MONITOR
--- NOTE | 2018-01-20 14:45 | NUR ---
PT RESTING IN SEMI FOWLERS POSITION;DENIES ANY PAIN OR NEEDS;RESPIRATIONS EVEN AND UNLABORED,SHALLOW ON O2 @ 2L VIA NC;TELE MONITOR IN PLACE;IV SITE PATENT;ENCOURAGED PT TO CALL FOR ASSISTANCE IF NEEDED;CALL LIGHT IN REACH;WILL CONTINUE TO MONITOR
[2018-01-20 14:59] VITALS: BP 137/67
--- NOTE | 2018-01-20 19:30 | NUR ---
BEDSIDE REPORT RECEIVED FROM HANNAH MUNSON. PT SITTING UP IN BED ON COMPUTER WITH FAMILY AT BEDSIDE. DENIES PAIN. RESPIRATIONS EVEN AND UNLABORED ON OXYGEN. PLAN OF CARE REVIEWED INCLUDING ECHO SCHEDULED FOR [id number]. PT ENCOURAGED TO VERBALIZE CONCERNS. STATES UNDERSTANDING. SAFETY MEASURES IN PLACE. CALL LIGHT WITHIN REACH.
[2018-01-20 19:55] VITALS: BP 146/74; BP 170/57
[2018-01-21 00:09] VITALS: BP 127/55
--- NOTE | 2018-01-21 00:39 | NUR ---
PT ASLEEP AT THIS TIME WITH NO SIGNS OF DISTRESS NOTED. RESPIRATIONS EVEN AND UNLABORED ON OXYGEN. NO REQUESTS OR COMPLAINTS AT THIS TIME. INDPENDENT IN ROOM. SAFETY MEASURES IN PLACE. CALL LIGHT WITHIN REACH.
[2018-01-21 04:00] VITALS: BP 137/78
--- NOTE | 2018-01-21 04:38 | NUR ---
PT ASLEEP AT THIS TIME; AWAKENS SPONTANEOUSLY. NO ACUTE CHANGES IN CONDITION NOTED THIS SHIFT. IV SITE APPEARS HEALTHY AND FLUSHES. TELE ON. OXYGEN IN PLACE VIA NC. SAFETY MEASURES IN PLACE. CALL LIGHT WITHIN REACH.
--- NOTE | 2018-01-21 07:10 | NUR ---
REPORT RECEIVED FROM LEIGHTONRN;PT RESTING IN HIGH FOWLERS POSITION;INTRODUCED SELF TO PT AND POC DISCUSSED;PT DENIES ANY PAIN OR NEEDS;RESPIRATIONS EVEN AND UNLABORED ON O2 @ 2L VIA NC;TELE MONITOR IN PLACE;PT ENCOURAGED TO CALL FOR ASSISTANCE IF NEEDED;CALL LIGHT IN REACH;WILL CONTINUE TO MONITOR
[2018-01-21 07:50] VITALS: BP 155/81
--- NOTE | 2018-01-21 07:50 | NUR ---
PT RESTING IN SEMI FOWLERS POSITION EATING BREAKFAST;VS OBTAINED AND ASSESSMENT COMPLETED;RESPIRATIONS EVEN AND UNLABORED ON O2 @ 2L VIA NC;ABDOMEN DISTENDED/SOFT ON PALPATION AND ACTIVE IN ALL 4 QUADRANTS;WEAK PEDAL PULSES NOTED WITH TRACE EDEMA TO BILATERAL ANKLES;ELEVATION ENCOURAGED;TELE MONITOR IN PLACE;#22G TO LEFT FOREARM FLUSHED AND PATENT,SITE APPEARS HEALTHY;SKIN INTACT;PT VOICES NO COMPLAINTS OF PAIN,PAIN SCALE AND REPORTING ENCOURAGED;ALL QUESTIONS ANSWERED;SAFETY PRECAUTIONS REINOFORCED;FALL PRECAUTIONS IN PLACE WITH BED IN THE LOWEST POSITION;CALL LIGHT IN REACH;WILL CONTINUE TO MONITOR
[2018-01-21 11:00] VITALS: BP 155/79
--- NOTE | 2018-01-21 11:10 | NUR ---
PT OOB WALKING AROUND ROOM;PT DENIES PAIN;RESPIRATIONS REMAIN EVEN AND UNLABORED ON O2 @ 2L VIA NC;TELE MONITOR IN PLACE;SCHEDULED MEDICATIONS ADMINISTERED AT THIS TIME;CALL LIGHT IN REACH;WILL CONTINUE TO MONITOR
--- NOTE | 2018-01-21 15:45 | NUR ---
SPOKE WITH NAREN TO VERIFY THE CONSULT @ [id number]
[2018-01-21 16:00] VITALS: BP 142/68
--- NOTE | 2018-01-21 17:20 | NUR ---
PT RESTING IN SEMI FOWLERS POSITION;DENIES ANY PAIN OR DISCOMFORTS;TELE MONITOR IN PLACE;RESPIRATIONS EVEN AND UNLABORED ON O2 @ 2L VIA NC;NON-PRODUCTIVE COUGH NOTED,PT REFUSES PRN ROBITUSSIN AT THIS TIME;ENCOURAGED TO CALL FOR ASSISTANCE IF NEEDED;CALL LIGHT IN REACH;WILL CONTINUE TO MONITOR
--- NOTE | 2018-01-21 18:00 | NUR ---
PT TRANSFERRED VIA WC TO [facility] IN STABLE CONDITION ACCOMPANIED BY STAFF MEMBER
--- NOTE | 2018-01-21 18:50 | NUR ---
PT RETURNED BACK TO FLOOR IN STABLE CONDITION
[2018-01-21 19:00] VITALS: BP 145/77; BP 174/69
--- NOTE | 2018-01-21 19:40 | NUR ---
PT SITTING IN HIGH-FOWLERS POSITION IN BED WITH FAMILY AT BEDSIDE. PT ALERT AND ORIENTED. RESP EVEN AND UNLABORED WITH O2 IN PLACE. LUNGS; CLEAR/ DIMINISHED BILAT. TELE IN PLACE. ABD DISTENDED; SOFT. ACTIVE BOWEL SOUNDS NOTED. TRACE EDEMA NOTED ANKLES BILAT. PEDAL PULSES PALPATED BILAT. IV LFA PATENT; FLUSHED WITHOUT DIFFICULTY. SAFETY PRECAUTIONS REINOFORCED. FREQUENT ROUNDS MADE. CALL LIGHT WITHIN REACH.
--- NOTE | 2018-01-22 00:05 | NUR ---
RESP EVEN AND UNLABORED WITH O2 IN PLACE. TELE IN PLACE. CALL LIGHT WITHIN REACH.
[2018-01-22 00:38] VITALS: BP 119/69
[2018-01-22 04:14] VITALS: BP 123/67
--- NOTE | 2018-01-22 04:14 | NUR ---
PT WOKE FOR MORNING VITALS; ASSESSMENT UNCHANGED. RESP EVEN AND UNLABORED WITH O2 IN PLACE. TELE IN PLACE. CALL LIGHT WITHIN REACH.
[2018-01-22 05:41] LABS: HEMATOCRIT 42.8 % (37.0-47.0); HEMOGLOBIN 13.2 g/dl (12.0-16.0); IMMATURE GRANULOCYTES 0.5 % (0.0-1.0); MEAN CELL VOLUME 89.5 fL CALC (80.0-100.0); MEAN CORPUSCULAR HGB 27.6 pG CALC (26.0-32.0); MEAN CORPUSCULAR HGB CONC 30.8 g/L CALC (32.0-36.0); NEUT# 9.88 thou/uL (2.00-7.15); RED BLOOD COUNT 4.78 mill/uL (4.20-5.60); RED CELL DISTRI WIDTH 13.3 % (11.5-15.5)
[2018-01-22 05:48] LABS: BUN 20 mg/dL (7-17); BUN/CREATININE RATIO 34 (12-20 (CALC)); CARBON DIOXIDE 38 mmol/l (22-30); CHLORIDE 90 mmol/l (95-108); CREATININE 0.6 mg/dL (0.5-1.0); GFR > 60 ML/MIN (>=60 (CALC)); GFR FOR AFR.AMER. > 60 ML/MIN (>=60 (CALC)); SODIUM 138 mmol/l (137-146)
[2018-01-22 05:55] LABS: ANION GAP 15 (6-22 (CALC)); POTASSIUM 5.3 mmol/l (3.5-5.1)
--- NOTE | 2018-01-22 08:05 | NUR ---
pt awake in bed; no distress noted; pt offers no complaints; assessment completed at this time; pt alert and oriented; denies pain; no n/v noted; pt denies sob/resp difficulty; resp even and unlabored; lungs clear/diminished bases; skin color wnl; ra; o2 sat 86-88% on ra; o2 strongly encouraged and reapplied; o2 sat 92-94% with 2L nc; dry lopper cough noted; hr reg; tele monitor intact; strong pulses; trace edema noted to ble; abd soft/distended with bs present; no bm noted per marine underwriter; pt admits to voiding without complication; no urine to inspect at this time; #22 in lfa saline locked; no redness or edema noted at site; plan of care/ am meds explained; call light within reach; will continue to monitor
[2018-01-22 08:15] VITALS: BP 150/62
--- NOTE | 2018-01-22 09:58 | NUR ---
pt transported to CT scan accompanied by volunteer via wc with portable o2 in stable condition
--- NOTE | 2018-01-22 10:25 | NUR ---
pt returned from CT scan in stable condition; o2 per nc; will continue to monitor
[2018-01-22 11:12] VITALS: BP 140/62
--- NOTE | 2018-01-22 12:03 | NUR ---
awake in recliner; offers no complaints; denies needs; resp even and unlabored; iv intact; no redness or edema noted at site; o2 per nc; tele monitor in place; call light within reach; will continue to monitor
[2018-01-22] MEDS ORDERED: BIOTUSSIN PO (12:52)
[2018-01-22] MEDS ORDERED: PREDNISONE10 MG PO (12:52)
[2018-01-22] MEDS ORDERED: BUMETANIDE1 MG PO (12:52)
[2018-01-22] MEDS ORDERED: LISINOPRIL10 MG PO (12:54)
--- NOTE | 2018-01-22 14:50 | NUR ---
discharge instructions reviewed with pt in detail; iv's removed with cath tip intact; prescriptions and lab order given to pt; tele monitor removed; awaiting ride;
--- NOTE | 2018-01-22 16:00 | NUR ---
awake in bed; offers no complaints; no distress noted; resp even and unlabored; pt continues to await for ride; will continue to monitor
--- NOTE | 2018-01-22 16:49 | NUR ---
Discharge instructions given. Patient verbalizes understanding of same. Discharged in stable condition via Wheelchair to Home with family. All belongings sent with pt.
== END 2018-01-22 16:40 | disposition home or self-care (01) | DRG 291 ==
LOC: ED 12:59 → ED-I 15:20 → ED 16:19 → MS2 16:20
PROVIDERS: Family Medicine; Hospitalist; Nurse Practitioner Family; ADMIT Internal Medicine; ATTEND Internal Medicine
PROC: 3E0234Z Introduction of Serum, Toxoid and Vaccine into Muscle, Percutaneous Approach (ICD-10-PCS; principal; 2018-01-18)
DX: I11.0 Hypertensive heart disease with heart failure (principal); I50.33 Acute on chronic diastolic (congestive) heart failure; J96.21 Acute and chronic respiratory failure with hypoxia; Z99.81 Dependence on supplemental oxygen; J96.22 Acute and chronic respiratory failure with hypercapnia; Z68.43 Body mass index [BMI] 50.0-59.9, adult; E66.2 Morbid (severe) obesity with alveolar hypoventilation; J44.1 Chronic obstructive pulmonary disease with (acute) exacerbation; J44.0 Chronic obstructive pulmonary disease with (acute) lower respiratory infection; J20.9 Acute bronchitis, unspecified; E11.9 Type 2 diabetes mellitus without complications; H40.9 Unspecified glaucoma; Z87.891 Personal history of nicotine dependence; Z23 Encounter for immunization
CPT/HCPCS: Q9967

== ENCOUNTER 2019-06-04 08:45 | Emergency (ER) | payer MEDICARE, MEDICAID ==
[~2019-06-04] VITALS: Ht 160 cm; Wt 82.8 kg
[~2019-06-04 08:45] MED LIST changes: +BIOTUSSIN PO; +BUMETANIDE1 MG PO; +LISINOPRIL10 MG PO; +VICTOZA18 MG/3 ML SC
[2019-06-04] MEDS ORDERED: ANUCORT-HC25 MG RE (09:41)
[2019-06-04] MEDS ORDERED: [UNRECOGNIZED DRUG - OTHER] TOP (09:41)
[2019-06-04 09:54] VITALS: BP 121/68
== END 2019-06-04 10:10 | disposition home or self-care (01) ==
LOC: ED 08:45
DX: K64.4 Residual hemorrhoidal skin tags (principal)

== ENCOUNTER 2019-06-17 08:19 | Day surgery (SDC) | payer MEDICARE, MEDICAID ==
[~2019-06-17] VITALS: Ht 160 cm; Wt 81.6 kg
[~2019-06-17 08:19] MED LIST changes: +ANUCORT-HC25 MG RE; +B-122500 MCG PO; +BIOTIN; +BIOTIN MAXI10000 MC1 PO; +GAS RELIEF EXT125 MG PO; +TRAMADOL HYDROC50 M1; +VITAMIN B CO PO; +VITAMIN B121000 MCG PO; +VITAMIN D-3; +VITAMIN D320 MCG; +[UNRECOGNIZED DRUG - OTHER] TOP
[2019-06-17] MEDS ORDERED: PERCOCET 5/325M1 TAB PO (10:48)
[2019-06-17 11:40] VITALS: BP 124/59
== END 2019-06-17 11:54 | disposition home or self-care (01) ==
LOC: ORM 08:19
PROVIDERS: ATTEND Surgery
PROC: 06BY3ZC Excision of Hemorrhoidal Plexus, Percutaneous Approach (ICD-10-PCS; principal; 2019-06-17)
PROC: 0D8R3ZZ Division of Anal Sphincter, Percutaneous Approach (ICD-10-PCS; 2019-06-17)
PROC: 0WJP8ZZ Inspection of Gastrointestinal Tract, Via Natural or Artificial Opening Endoscopic Approach (ICD-10-PCS; 2019-06-17)
DX: K64.2 Third degree hemorrhoids (principal); K64.4 Residual hemorrhoidal skin tags; K60.1 Chronic anal fissure; Z98.84 Bariatric surgery status
CPT/HCPCS: C9290; J0131

== ENCOUNTER 2019-10-19 | Emergency (ER) | payer MEDICARE, MEDICAID ==
[~2019-10-19] MED LIST changes: +B-122500 MCG IN; -B-122500 MCG PO; +PERCOCET 5/325M1 TAB PO
[2019-10-19 16:41] LABS: HEMOGLOBIN 12.3 g/dl (12.0-16.0); IMMATURE GRANULOCYTES 0.1 % (0.0-5.0); MEAN CELL VOLUME 94.4 fL CALC (80.0-100.0); MEAN CORPUSCULAR HGB 31.4 pG CALC (26.0-32.0); MEAN CORPUSCULAR HGB CONC 33.2 g/L CALC (32.0-36.0); NEUT# 4.14 thou/uL (2.00-7.15); RED BLOOD COUNT 3.92 mill/uL (4.20-5.60); RED CELL DISTRI WIDTH 12.7 % (11.5-15.5)
[2019-10-19 16:59] LABS: ALKALINE PHOSPHATASE 113 u/l (38-126); AMYLASE 93 u/l (30-110); BILIRUBIN, TOTAL 0.6 mg/dL (0.0-1.4); BUN 19 mg/dL (7-17); BUN/CREATININE RATIO 37 (12-20 (CALC)); CREATININE 0.5 mg/dL (0.5-1.0); GFR > 60 ML/MIN (>=60 (CALC)); GFR FOR AFR.AMER. > 60 ML/MIN (>=60 (CALC)); LIPASE 67 u/l (23-300); SODIUM 139 mmol/l (137-146); TOTAL PROTEIN 7.2 g/dL (6.3-8.2)
[2019-10-19 17:06] LABS: ANION GAP 12 (6-22 (CALC)); CARBON DIOXIDE 27 mmol/l (22-30); CHLORIDE 104 mmol/l (95-108); POTASSIUM 3.6 mmol/l (3.5-5.1); SGOT/AST 75 u/l (14-36)
[2019-10-19 18:06] LABS: URINE BLOOD DIPSTICK NEGATIVE (NEGATIVE); URINE COLOR YELLOW; URINE GLUCOSE - DIPSTICK NEGATIVE (NEGATIVE); URINE KETONE NEGATIVE (NEGATIVE); URINE LEUK ESTERASE NEGATIVE (NEGATIVE); URINE NITRITE - DIPSTICK NEGATIVE (Negative); URINE PH 5.5 (4.5-8.0); URINE PROTEIN - DIPSTICK TRACE mg/dL (NEG-TRACE); URINE SPECIFIC GRAVITY >=1.030; URINE UROBILINOGEN - DIPSTICK 0.2 E.U./dL (0.2)
[2019-10-19 18:08] LABS: URINE BILIRUBIN - DIPSTICK NEGATIVE (NEGATIVE)
[2019-10-19] MEDS ORDERED: PROTONIX40 M2 PO (18:09)
[2019-10-19] MEDS ORDERED: ZOFRAN4 MG/TAB PO (18:09)
[2020-01-23] MEDS ORDERED: AUGMENTIN XR PO (09:09)
[2020-01-28] MEDS ORDERED: TYLENOL500 MG PO (11:38)
[2020-01-28] MEDS ORDERED: OXYCOD/APAP1 TA1 PO (11:38)
== END 2019-10-19 18:25 | disposition home or self-care (01) ==
DX: R10.11 Right upper quadrant pain (principal); Z98.84 Bariatric surgery status; R11.0 Nausea
CPT/HCPCS: S0164

== ENCOUNTER 2019-10-20 | Emergency (ER) | payer MEDICARE, MEDICAID ==
[~2019-10-20] MED LIST changes: +PROTONIX40 M2 PO; +ZOFRAN4 MG/TAB PO
[2019-10-20 20:23] LABS: HEMATOCRIT 36.6 % (37.0-47.0); MEAN CELL VOLUME 95.1 fL CALC (80.0-100.0); MEAN CORPUSCULAR HGB 31.2 pG CALC (26.0-32.0); MEAN CORPUSCULAR HGB CONC 32.8 g/L CALC (32.0-36.0); NEUT# 2.83 thou/uL (2.00-7.15); RED BLOOD COUNT 3.85 mill/uL (4.20-5.60); RED CELL DISTRI WIDTH 12.6 % (11.5-15.5)
[2019-10-20 20:27] LABS: URINE BILIRUBIN - DIPSTICK NEGATIVE (NEGATIVE); URINE BLOOD DIPSTICK NEGATIVE (NEGATIVE); URINE COLOR YELLOW; URINE GLUCOSE - DIPSTICK NEGATIVE (NEGATIVE); URINE KETONE NEGATIVE (NEGATIVE); URINE LEUK ESTERASE NEGATIVE (NEGATIVE); URINE NITRITE - DIPSTICK NEGATIVE (Negative); URINE PH 5.5 (4.5-8.0); URINE PROTEIN - DIPSTICK NEGATIVE (NEG-TRACE); URINE SPECIFIC GRAVITY >=1.030; URINE UROBILINOGEN - DIPSTICK 0.2 E.U./dL (0.2)
[2019-10-20 20:36] LABS: ALBUMIN 4.2 g/dL (3.2-5.0); AMYLASE 77 u/l (30-110); ANION GAP 11 (6-22 (CALC)); BILIRUBIN, TOTAL 0.6 mg/dL (0.0-1.4); BUN 18 mg/dL (7-17); BUN/CREATININE RATIO 35 (12-20 (CALC)); CARBON DIOXIDE 28 mmol/l (22-30); CHLORIDE 105 mmol/l (95-108); CREATININE 0.5 mg/dL (0.5-1.0); GFR > 60 ML/MIN (>=60 (CALC)); GFR FOR AFR.AMER. > 60 ML/MIN (>=60 (CALC)); LIPASE 71 u/l (23-300); POTASSIUM 3.9 mmol/l (3.5-5.1); SGOT/AST 131 u/l (14-36); SODIUM 140 mmol/l (137-146); TOTAL PROTEIN 7.4 g/dL (6.3-8.2)
[2019-10-20 20:37] LABS: ALKALINE PHOSPHATASE 190 u/l (38-126)
[2020-01-23] MEDS ORDERED: AUGMENTIN XR PO (09:09)
[2020-01-28] MEDS ORDERED: TYLENOL500 MG PO (11:38)
[2020-01-28] MEDS ORDERED: OXYCOD/APAP1 TA1 PO (11:38)
== END 2019-10-20 22:05 | disposition home or self-care (01) ==
PROVIDERS: Emergency Medicine
DX: R10.11 Right upper quadrant pain (principal); R74.8 Abnormal levels of other serum enzymes; Z98.84 Bariatric surgery status; R11.0 Nausea
CPT/HCPCS: S0164

== ENCOUNTER 2020-01-30 | Inpatient (IN) | payer MEDICARE, MEDICAID ==
[2020-01-29] VITALS (8 sets, daily range): BP systolic 92–121; BP diastolic 31–54
--- NOTE | 2020-01-29 12:00 | NUR ---
PT ARRIVES TO ROOM 280 FROM OPERATING ROOM, ALERT AND ORIENTED X 3. PT ABLE TO SCOOT HERSELF FROM STRETCHER TO BED. PT SEEN WITH MESH PANTIES AND KERLIX DRESSING IN WOUND, WELL PIERCE DRAIN. ADMISSION ASSESSMENT COMPLETED.
--- NOTE | 2020-01-29 15:19 | NUR ---
PT WAS MEDICATED FOR PAIN, NOW RESTS ON HER RIGHT SIDE FOR COMFORT. DRAINAGE NOTED ON SHEETS AND PAD EXPECTED.
--- NOTE | 2020-01-29 19:17 | NUR ---
PT PROVIDED PERCOCET FOR PAIN RELIEF, THIS AFTER SHE AMBULATED TO WITH STEADY GAIT. NO FURTHER DRAINAGE NOTED ON NEW DRESSING. OLD WAS SOILING THE BED. PT APPEARS COMFORTABLE, NO EVIDENCE OF EXTREME PAIN.
--- NOTE | 2020-01-29 20:30 | NUR ---
PHYSICAL ASSEMENT COMPLETE. VS TAKEN BY RICARDO @ 1950 ASSESSED. PLAN OF CARE REVIEWED W/ PT, DENIES QUESTIONS, VERBALIZES UNDERSTANDING. DENIES NEEDS AT THIS TIME. CALL [place] WITHIN REACH, AGREES TO CALL PRN. BED LOCKED IN LOW POSITION W/ BEDRAILS UP X2, ITEMS WITHIN REACH.
[~2020-01-30] MED LIST changes: +AUGMENTIN XR PO; +OXYCOD/APAP1 TA1 PO; +TYLENOL500 MG PO
[2020-01-30 01:01] VITALS: BP 96/53
--- NOTE | 2020-01-30 01:10 | NUR ---
VS TAKEN BY SIDE LASTER STAPLE @ 0101 ASSESSED. PT APPEARS TO BE SLEEPING COMFORTABLY. NO APPARENT DISTRESS. RESPIRATIONS REGULAR AND UNLABORED.CALL [place] REMAINS WITHIN REACH. BED REMAINS LOCKED IN LOW POSITION W/ BEDRAILS UP X2, ITEMS REMAIN WITHIN REACH.
[2020-01-30 05:36] VITALS: BP 108/64
--- NOTE | 2020-01-30 06:13 | NUR ---
VS TAKEN BY RICARDO @ 3013 ASSESSED. PHYSICAL ASSESMENT REMAINS UNCHANGED. PT RESTING IN BED, APPEARS COMFORTABLE. DENIES PAIN. PT REPORTS SHE NEEDS TO HAVE BM, PT UP TO TOILET. PT WAS UNABLE TO HAVE BM. DRESSING CHANGE COMPLETED @ THIS TIME. AREA CLEANSED AND GENTLY PATTED DRY. PACKING GENTLY REMOVED. PT TOLERATED W/ DISCOMFORT. STERILE SALINE MOISTENED 1'INCH GAUZE WRAPPING USED TO LOOSELY PACK BOTH OPEN SURGICAL SITES. FOLDED 4X4' PLACED BETWEEN GLUTEAL CLEFT. ABD PAD SECURED OVER TOP W/ PAPER TAPE. LARGE PERIPAD SECURED W/ MESH UNDERWEAR. Inder OLIVAREZ LPN PRESENT TO ASSIST W/ DRESSING CHANGE AT BEDSIDE. PT DENIES NEEDS @ THIS TIME.BED REMAINS LOCKED IN LOW POSITION W/ BEDRAILS UP X2, ITEMS REMAIN WITHIN REACH.
[2020-01-30 09:00] VITALS: BP 106/43
--- NOTE | 2020-01-30 09:00 | NUR ---
ASSESSMENT IS COMPLTED: IV SITE IS FREE FROM REDNESS OR EDEMA. HR IS REG,PULSES ARE STRONG X4, ABD IS SOFT WITH ACTIVE BS. BREATH SOUNDS ARE CLEAR, BILATERALLY. DRESSING ON CLAUDIA ANAL IS CDI. PT IS UNABLE TO SIT COMFORTABLY.
--- NOTE | 2020-01-30 12:45 | NUR ---
PT IS RELAXING IN BED WITH NO DISTRESS NOTED. ATTEMPTING TO SIT UP AND HAVE LUNCH FINDING IT DIFFICULT TO ACCOMPLISH. CONTINEU TO OSBERVE AND MONITOR.
[2020-01-30 16:00] VITALS: BP 119/51
--- NOTE | 2020-01-30 16:45 | NUR ---
PT HAS BEEN RELAXING IN BED WITH NO DISTRESS NOTED. IV SITE ISF REE FROM REDNESS OR EDEMA.
--- NOTE | 2020-01-30 18:24 | NUR ---
DRESSING CHANGED AND REINFORCED WITH ASSISTANCE BY ZAINA YOUNG. PT TOLERATED WELL 4X4 WITH WET TO DRY DRESSING PLACED PIERCE DRAIN IN PLACE./ DRAINING SERO AND SOME BLOOD. COVERED WITH ABD PAD IN PLACE.
[2020-01-30 19:12] VITALS: BP 90/41
--- NOTE | 2020-01-30 20:30 | NUR ---
PHYSICAL ASSEMENT COMPLETE. VS TAKEN BY RICARDO @ 1912 ASSESSED. PLAN OF CARE REVIEWED W/ PT, DENIES QUESTIONS, VERBALIZES UNDERSTANDING. DRESSING TO BUTTOCK IS CLEAN, DRY, AND INTACT. DENIES NEEDS AT THIS TIME. CALL [place] WITHIN REACH, AGREES TO CALL PRN. BED LOCKED IN LOW POSITION W/ BEDRAILS UP X2, ITEMS WITHIN REACH.
--- NOTE | 2020-01-31 00:52 | NUR ---
PT APPEARS TO BE SLEEPING COMFORTABLY. NO APPARENT DISTRESS. RESPIRATIONS REGULAR AND UNLABORED.CALL [place] REMAINS WITHIN REACH. BED REMAINS LOCKED IN LOW POSITION W/ BEDRAILS UP X2, ITEMS REMAIN WITHIN REACH.
[2020-01-31 04:34] VITALS: BP 114/52
--- NOTE | 2020-01-31 06:10 | NUR ---
PT UP TO BATHROOM TO ATTEMPT TO HAVE A BM, DRESSING REMOVED. PT HAD LARGE BM. PT BACK TO BED. PT MEDICATED W/ DILAUDID AND ZOFRAN PRIOR TO DRESSING CHANGE, SEE MAR. PTs CLAUDIA-ANAL AREA CLEANSED THOROUGHLY. PACKING REMOVED. KNOT IN PIERCE DRAIN RINSED W/ STERILE SALINE. 1" GAUZE ROLL DAMPENED W/ STERILE SALINE GENTLY PACKED INTO SURGICAL SITES. FOLDED 4X4 X2 PLACED IN GLUTEAL CLEFT. ABD PAD SECURED OVER TOP W/ PAPER TAPE. MESH UNDERWEAR W/ PERIPAD SECURED OVER TOP. DISPOSABLE PAD ON BED. VS TAKEN BY LICENSED NUCLEAR OPERATOR @ 1749 ASSESSED. PHYSICAL ASSESMENT REMAINS UNCHANGED. PT RESTING IN BED, APPEARS COMFORTABLE. DENIES PAIN, DENIES FURTHER NEEDS @ THIS TIME. BED REMAINS LOCKED IN LOW POSITION W/ BEDRAILS UP X2, ITEMS REMAIN WITHIN REACH. CALL [place] REMAINS WITHIN REACH, AGREES TO CALL PRN.
[2020-01-31 08:04] VITALS: BP 96/40
--- NOTE | 2020-01-31 08:04 | NUR ---
ASSESSMENT IS COMPLETED: IV SITE IS FREE FROM REDNESS OR EDEMA. HR IS REG,PULSES ARE STRONG X4, ABD IS SOFT WITH ACTIVE BS. BREATH SOUNDS ARE CLEAR. BILATERAL. DRESSING ON CLAUDIA AREA IS CDI. CONTINUE TO OSBERVE AND MONITOR.
--- NOTE | 2020-01-31 13:00 | NUR ---
PT IS RELAXING IN BED WITH NO DISTRESS. CONTINUE TO OBSERVE AND MONITOR.
[2020-01-31 15:30] VITALS: BP 113/50
--- NOTE | 2020-01-31 16:45 | NUR ---
PT IS RELAXING IN BED WITH NO DISTRESS NOTED. IV SITE IS FREE FROM REDNESS OR EDEMA.
[2020-01-31 19:20] VITALS: BP 94/44
--- NOTE | 2020-01-31 20:45 | NUR ---
PHYSICAL ASSEMENT COMPLETE. VS TAKEN BY RICARDO @ 1920 ASSESSED. PLAN OF CARE REVIEWED W/ PT, DENIES QUESTIONS, VERBALIZES UNDERSTANDING. DENIES NEEDS AT THIS TIME. CALL [place] WITHIN REACH, AGREES TO CALL PRN. BED LOCKED IN LOW POSITION W/ BEDRAILS UP X2, ITEMS WITHIN REACH.
--- NOTE | 2020-01-31 22:30 | NUR ---
CURRENT DRESSING REMOVED. MODERATE AMOUNT SEROUSANGUINOUS DRAINAGE TO DRESSING PT MEDICATED W/ DILAUDID AND ZOFRAN PRIOR TO DRESSING CHANGE, SEE MAR. PTs PACKING REMOVED. IRRIGATED AREA W/ STERILE SALINE. 1" GAUZE ROLL DAMPENED W/ STERILE SALINE GENTLY PACKED INTO SURGICAL SITES. FOLDED 4X4 X2 PLACED IN GLUTEAL CLEFT. ABD PAD SECURED OVER TOP W/ PAPER TAPE. MESH UNDERWEAR W/ PERIPAD SECURED OVER TOP. DISPOSABLE PAD ON BED.
[2020-02-01 03:35] VITALS: BP 119/46
--- NOTE | 2020-02-01 04:35 | NUR ---
VS TAKEN BY CONTROL VALVE MECHANIC @ 0330 ASSESSED. PHYSICAL ASSESMENT REMAINS UNCHANGED. PT RESTING IN BED, APPEARS COMFORTABLE. DENIES PAIN, DENIES NEEDS @ THIS TIME. BED REMAINS LOCKED IN LOW POSITION W/ BEDRAILS UP X2, ITEMS REMAIN WITHIN REACH. CALL [facility] REMAINS WITHIN REACH, AGREES TO CALL PRN.
[2020-02-01 07:30] VITALS: BP 106/70
--- NOTE | 2020-02-01 07:30 | NUR ---
ASSESSMENT IS COMPLETED: PT IS RELAXING IN BED WITH NO DISTRESS NOTED. IV SITE IS FREE FROM REDNESS OR EDEMA. HR IS REG, PULSES ARE STRONG X4,A BD IS SOFT WITH ACTIVE BS. BREATH SOUNDS ARE CLEAR,BILATERALLY. DRESSING ON CLAUDIA AREA IS CDI. CONTINUE TO OSBERVE AND MONITOR.
--- NOTE | 2020-02-01 10:30 | NUR ---
DR RODRIGUEZ IN TO VISIT WITH PT.
--- NOTE | 2020-02-01 12:00 | NUR ---
REMOVED DRESSING ON BUTTOCK WITH 4X4 PACKING. HAS SERO DRAINAGE NOTED. REPLACED WITH ABD PAD AND 4X4 WITH SALINE. SECURED WITH PAPER TAPE. PT TOLERATED WELL.
--- NOTE | 2020-02-01 12:30 | NUR ---
PT IS RELAXING IN BED WITH NO DISTRESS NOTED. NO C/O PAIN VOICED., CONTINUE TO OBSERVE AND MONITOR.
[2020-02-01 15:45] VITALS: BP 155/67
--- NOTE | 2020-02-01 16:30 | NUR ---
PT IS RELAXING IN BED , INQUIRED ABOUT TAKING A SHOWER. EXPLAINED THAT NOTHING WAS MENTIONED. BUT CAN COVER THE BUTTOCK, AND CAN BE WASHED UP. WILL CHECK ON THAT LATER. PER PT.
--- NOTE | 2020-02-01 19:00 | NUR ---
REPORT RECEIVED BY Laila SYKES LPN, CARE OF PT TAKEN OVER AT THIS TIME.
[2020-02-01 19:05] VITALS: BP 127/50
--- NOTE | 2020-02-01 20:30 | NUR ---
PHYSICAL ASSEMENT COMPLETE. VS TAKEN BY RICARDO @ [id number] ASSESSED. PLAN OF CARE REVIEWED W/ PT, DENIES QUESTIONS, VERBALIZES UNDERSTANDING. DENIES NEEDS AT THIS TIME. CALL [facility] WITHIN REACH, AGREES TO CALL PRN. BED LOCKED IN LOW POSITION W/ BEDRAILS UP X2, ITEMS WITHIN REACH.
--- NOTE | 2020-02-01 23:00 | NUR ---
CURRENT DRESSING REMOVED. MODERATE AMOUNT SEROUSANGUINOUS DRAINAGE TO DRESSING PT PREMEDICATED W/ DILAUDID AND ZOFRAN PRIOR TO DRESSING CHANGE, SEE MAR. PTs PACKING REMOVED. IRRIGATED AREA W/ STERILE SALINE. 1" GAUZE ROLL DAMPENED W/ STERILE SALINE GENTLY PACKED INTO SURGICAL SITES. FOLDED 4X4 X2 PLACED IN GLUTEAL CLEFT. ABD PAD X2 SECURED OVER TOP W/ PAPER TAPE. MESH UNDERWEAR W/ PERIPAD SECURED OVER TOP. DISPOSABLE PAD ON BED.
[2020-02-02 03:40] VITALS: BP 132/52
--- NOTE | 2020-02-02 05:18 | NUR ---
VS TAKEN BY PULPER @ 0340 ASSESSED. PHYSICAL ASSESMENT REMAINS UNCHANGED. PT RESTING IN BED, APPEARS COMFORTABLE. DENIES PAIN, DENIES NEEDS @ THIS TIME. BED REMAINS LOCKED IN LOW POSITION W/ BEDRAILS UP X2, ITEMS REMAIN WITHIN REACH. CALL [place] REMAINS WITHIN REACH, AGREES TO CALL PRN.
[2020-02-02 08:00] VITALS: BP 130/55
--- NOTE | 2020-02-02 09:00 | NUR ---
PT IS AWAKE, ALERT, AMBULATORY IN ROOM. PT WITH DRESSING TO COCCYX PER HEALING ABSCESS I&D. MED PROVIDED FOR PAIN PRIOR TO STARTING DRESSING CHANGE. PACKING REMOVED PT DID HAVE BM, THEN A SHOWER.
[2020-02-02 16:00] VITALS: BP 130/56
--- NOTE | 2020-02-02 18:00 | NUR ---
PT SEEN BY DR RODRIGUEZ EARLIER, PIERCE REMOVED. PT FELT BETTER. DRESSING REPLACED, PT ABLE TO MOVE WITH LESS PAIN. PT PROVIDED PAIN MEDS IN THE AFTERNOON PER REQUEST.
[2020-02-02 19:00] VITALS: BP 125/64
--- NOTE | 2020-02-02 19:00 | NUR ---
RECEIVED REPORT FROM NURSE ZAINA PATIENT WAS RESTING IN BED WATCHING TV [facility] UNLABORED BREATHING CALL LIGHT AT REACH.
--- NOTE | 2020-02-02 22:01 | NUR ---
DRESSING CHANGED DONE AT THIS TIME ORDERED.
[2020-02-03 04:00] VITALS: BP 122/62
[2020-02-03 07:26] VITALS: BP 129/68
--- NOTE | 2020-02-03 08:04 | NUR ---
PT SEEN COMFORTABLE IN THE BED AWAITING BREAKFAST. PAIN LEVEL IS CONTROLLED.
[2020-02-03] MEDS ORDERED: AMOX/K CLAV875 M1 PO (10:02)
[2020-02-03] MEDS ORDERED: PERCOCET 5/325M1 TAB PO (10:02)
--- NOTE | 2020-02-03 10:47 | NUR ---
PT DID HAVE BM THIS MORNING, NECESSITATING DRESSING CHANGE. PT TOLERATED WITH SOME DISCOMFORT. DR RODRIGUEZ SAW PT TODAY, WILL DISCHARGE THIS AFTERNOON AFTER ANOTHER DRESSING CHANGE TO SHORTEN THE TIME UNTIL IT IS CHANGED AGAIN BY HOME HEALTH TOMORROW.
--- NOTE | 2020-02-03 15:53 | NUR ---
PT HAS BEEN DISCHARGED TO HOME THIS AFTERNOON BY DR RODRIGUEZ. DRESSING WAS CHANGED JUST PRIOR TO HER DEPARTURE AND HOME HEALTH WILL SEE HER IN THE AM. PT VERBALIZED UNDERSTANDING OF DC INSTRUCTIONS, TAKEN TO LOBBY IN WHEELCHAIR.
== END 2020-02-03 15:02 | disposition home health service (06) | DRG 346 ==
PROVIDERS: ADMIT Surgery
PROC: 0D9P0ZZ Drainage of Rectum, Open Approach (ICD-10-PCS; principal; 2020-01-29)
DX: K61.1 Rectal abscess (principal); K62.89 Other specified diseases of anus and rectum
CPT/HCPCS: C9290; J0131; Q9967

== ENCOUNTER 2020-08-19 09:26 | Day surgery (SDC) | payer MEDICARE, MEDICAID ==
[~2020-08-19] VITALS: Ht 160 cm; Wt 68.9 kg
[~2020-08-19 09:26] MED LIST changes: +AMOX/K CLAV875 M1 PO
[2020-08-19] MEDS ORDERED: PERCOCET 5/325M1 TAB PO (12:18)
[2020-08-19 12:47] VITALS: BP 134/63
== END 2020-08-19 13:00 | disposition home or self-care (01) ==
LOC: ORM 09:26
PROVIDERS: ATTEND Surgery
PROC: 0FT44ZZ Resection of Gallbladder, Percutaneous Endoscopic Approach (ICD-10-PCS; principal; 2020-08-19)
DX: K80.10 Calculus of gallbladder with chronic cholecystitis without obstruction (principal); I11.0 Hypertensive heart disease with heart failure; I50.9 Heart failure, unspecified; J44.9 Chronic obstructive pulmonary disease, unspecified; E11.9 Type 2 diabetes mellitus without complications; K64.4 Residual hemorrhoidal skin tags; Z98.84 Bariatric surgery status; Z20.828 Contact with and (suspected) exposure to other viral communicable diseases
CPT/HCPCS: J0131; J1610; J2710; Q9967

== ENCOUNTER 2020-08-28 00:36 | Emergency (ER) | payer MEDICARE, MEDICAID ==
[~2020-08-28] VITALS: Ht 160 cm; Wt 68.0 kg
[2020-08-28] MEDS ORDERED: PERCOCET1 TA4 PO (00:56)
[2020-08-28 01:18] LABS: HEMATOCRIT 35.2 % (37.0-47.0); HEMOGLOBIN 11.5 g/dl (12.0-16.0); IMMATURE GRANULOCYTES 0.3 % (0.0-5.0); MEAN CELL VOLUME 93.6 fL CALC (80.0-100.0); MEAN CORPUSCULAR HGB 30.6 pG CALC (26.0-32.0); MEAN CORPUSCULAR HGB CONC 32.7 g/dL CAL (32.0-36.0); NEUT# 5.46 thou/uL (2.00-7.15); RED BLOOD COUNT 3.76 mill/uL (4.20-5.60); RED CELL DISTRI WIDTH 12.6 % (11.5-15.5)
[2020-08-28 01:35] LABS: AMYLASE 35 u/l (30-110); ANION GAP 14 (6-22 (CALC)); BUN 16 mg/dL (7-17); BUN/CREATININE RATIO 18 (12-20 (CALC)); CARBON DIOXIDE 26 mmol/l (22-30); CHLORIDE 101 mmol/l (95-108); CREATININE 0.9 mg/dL (0.5-1.0); GFR > 60 ML/MIN (>=60 (CALC)); GFR FOR AFR.AMER. > 60 ML/MIN (>=60 (CALC)); LIPASE 31 u/l (23-300); POTASSIUM 3.4 mmol/l (3.5-5.1); SGOT/AST 73 u/l (14-36); SODIUM 138 mmol/l (137-146)
[2020-08-28 01:36] LABS: ALBUMIN 3.1 g/dL (3.2-5.0); ALKALINE PHOSPHATASE 621 u/l (38-126); BILIRUBIN, TOTAL 9.8 mg/dL (0.0-1.4); TOTAL PROTEIN 5.8 g/dL (6.3-8.2)
[2020-08-28 04:10] VITALS: BP 105/52
[2020-08-28 05:32] LABS: URINE BLOOD DIPSTICK NEGATIVE (NEGATIVE); URINE COLOR BROWN; URINE GLUCOSE - DIPSTICK 100 mg/dL (NEGATIVE); URINE KETONE TRACE mg/dL (NEGATIVE); URINE LEUK ESTERASE NEGATIVE (NEGATIVE); URINE PROTEIN - DIPSTICK 30 mg/dL (NEG-TRACE)
[2020-08-28 05:40] LABS: URINE BILIRUBIN - DIPSTICK LARGE (NEGATIVE); URINE NITRITE - DIPSTICK POSITIVE (Negative)
[2020-08-28 05:52] LABS: URINE SQUAMOUS EPITHELIAL CELL FEW EPI/hpf (0-FEW); URINE WBC 50-100 WBC/hpf (0-5)
[2020-08-28 05:53] LABS: URINE BACTERIA MANY hpf
== END 2020-08-28 05:28 | disposition short-term general hospital (02) ==
LOC: ED 00:36
PROVIDERS: Family Medicine
DX: K91.86 Retained cholelithiasis following cholecystectomy (principal); I11.0 Hypertensive heart disease with heart failure; I50.9 Heart failure, unspecified; J44.9 Chronic obstructive pulmonary disease, unspecified; E11.9 Type 2 diabetes mellitus without complications; Y83.6 Removal of other organ (partial) (total) as the cause of abnormal reaction of the patient, or of later complication, without mention of misadventure at the time of the procedure; Z98.84 Bariatric surgery status; Z90.49 Acquired absence of other specified parts of digestive tract
CPT/HCPCS: Q9967